=== PATIENT | female | born 1955 | race Caucasian/White ===

== ENCOUNTER 2017-04-01 11:02 | Emergency (ER) | payer OTHER ==
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
--- NOTE | 2017-04-01 13:09 | ED ORDER SUMMARY ---
..... Patient: MIGUELINA KAISER OrderSheet VisitID: [id number] [address] [place] [address] 61y, F Registration Date/Time: 04/01/2017 ORDER SHEET Weight: 123.8 kg (stated) Allergies: Niacin, Adhesive GENERAL ORDERS: Cervical Spine 2 or 3V Urgent (12:23 04/01/2017 Helen VELAZQUEZ) (Ack 12:24 Chelsy) (12:37 Chelsy) MEDICATION ORDERS: IV FLUIDS: ORDER SHEET NOTES: [Electronically signed by Walter Gil R.N. (19:36 04/01/2017)] [Electronically signed by Liang Wynne MD (09:01 04/02/2017)] [Electronically locked/signed by Walter Gil R.N. (19:36 04/01/2017)]
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
--- NOTE | 2017-04-01 13:09 | ED ORDER SUMMARY ---
..... Patient: MIGUELINA KAISER OrderSheet [facility] VisitID: [id number] [address] [place] [address] 61y, F Registration Date/Time: 04/01/2017 ORDER SHEET Weight: 123.8 kg (stated) Allergies: Niacin, Adhesive GENERAL ORDERS: Cervical Spine 2 or 3V Urgent (12:23 04/01/2017 Helen VELAZQUEZ) (Ack 12:24 Chelsy) (12:37 Chelsy) MEDICATION ORDERS: IV FLUIDS: ORDER SHEET NOTES: [Electronically signed by Walter Gil R.N. (19:36 04/01/2017)] [Electronically signed by Liang Wynne MD (09:01 04/02/2017)] [Electronically locked/signed by Walter Gil R.N. (19:36 04/01/2017)]
--- NOTE | 2017-04-02 09:02 | ED MED RECONCILIATION SUMMARY ---
Patient: MIGUELINA KAISER Medication Reconciliation Report [facility] VisitID: [id number] [address] [place] [address] 61y, F Registration Date/Time: 04/01/2017 Weight: 123.8 kg Height/Length: 66 in. BMI: 44.1 ALLERGIES: Adhesive, Niacin The patient's Home Medications are listed below: THE FOLLOWING MEDICATIONS NEED TO BE RECONCILED: doesn't know medication list The source(s) of the original Home Medication information: Not obtained. The following Medications were given to the patient in the Emergency Department: None. The following Medications were prescribed to the patient: Hydrocodone/APAP 5mg / 325mg: take 1 orally every 6 hours as needed for pain. Dispense ten (10). No refill. -- Liang Wynne MD Flexeril 5 mg: take 1 orally every 8 hours as needed for muscle spasm or pain. Dispense ten (10). No refills. Substitution is permissible. -- Liang Wynne MD
--- NOTE | 2017-04-02 09:02 | ED MAR SUMMARY ---
..... Medication Administration Record [facility] [address], [place] [id number] Patient: MIGUELINA KAISER Visit ID: [id number] 61y, F Weight: 123.8 kg Height/Length: 66 in BMI: 44.1 ALLERGIES: Adhesive, Niacin
--- NOTE | 2017-04-02 09:02 | ED MED RECONCILIATION SUMMARY ---
Patient: MIGUELINA KAISER Medication Reconciliation Report [facility] VisitID: [id number] [address] [place] [address] 61y, F Registration Date/Time: 04/01/2017 Weight: 123.8 kg Height/Length: 66 in. BMI: 44.1 ALLERGIES: Adhesive, Niacin The patient's Home Medications are listed below: THE FOLLOWING MEDICATIONS NEED TO BE RECONCILED: doesn't know medication list The source(s) of the original Home Medication information: Not obtained. The following Medications were given to the patient in the Emergency Department: None. The following Medications were prescribed to the patient: Hydrocodone/APAP 5mg / 325mg: take 1 orally every 6 hours as needed for pain. Dispense ten (10). No refill. -- Liang Wynne MD Flexeril 5 mg: take 1 orally every 8 hours as needed for muscle spasm or pain. Dispense ten (10). No refills. Substitution is permissible. -- Liang Wynne MD
--- NOTE | 2017-04-02 09:02 | ED MAR SUMMARY ---
..... Medication Administration Record [facility] [address] [place], [place] [id number] Patient: MIGUELINA KAISER Visit ID: [id number] 61y, F Weight: 123.8 kg Height/Length: 66 in BMI: 44.1 ALLERGIES: Adhesive, Niacin
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
== END 2017-04-01 14:05 | disposition home or self-care (01) ==
LOC: ED SRH 11:02
DX: S16.1XXA Strain of muscle, fascia and tendon at neck level, initial encounter (principal); V43.62XA Car passenger injured in collision with other type car in traffic accident, initial encounter; Y92.410 Unspecified street and highway as the place of occurrence of the external cause; Y99.8 Other external cause status; E11.9 Type 2 diabetes mellitus without complications; I10 Essential (primary) hypertension; F17.210 Nicotine dependence, cigarettes, uncomplicated; Z88.8 Allergy status to other drugs, medicaments and biological substances